=== PATIENT | female | born 1970 | race Caucasian/White ===

== ENCOUNTER → 2017-05-29 | Outpatient (CLI) | payer OTHER, BC ==
--- NOTE | 2017-05-29 10:51 | RAD ---
Indication: Right wrist pain. Time of exam 10:38 AM 4 views of the right wrist were obtained. The distal radius and ulna are intact. The carpus is intact. Metacarpals are unremarkable. No fractures are seen. The navicular is unremarkable. Impression: No acute bony abnormality is detected.
== END | disposition home or self-care (01) ==
LOC: DXRADRC 10:25
PROVIDERS: ATTEND General Practice
DX: S66.911A Strain of unspecified muscle, fascia and tendon at wrist and hand level, right hand, initial encounter (principal); R20.2 Paresthesia of skin; X58.XXXA Exposure to other specified factors, initial encounter; Y93.89 Activity, other specified; Y92.89 Other specified places as the place of occurrence of the external cause; Y99.8 Other external cause status
CPT/HCPCS: 73110

== ENCOUNTER → 2017-10-29 | Outpatient (CLI) | payer BC, OTHER ==
--- NOTE | 2017-10-31 08:48 | RAD ---
EXAM: MAMMO MARITA SCREENING BILATERAL. HISTORY: Screening. COMPARISON: Previous study from 2016 and 2015. FINDINGS: 2-D and 3-D tomosynthesis mammograms were obtained of both breasts in the CC and MLO projections. Computer-aided detection (CAD) was utilized. Breast density category B: There are scattered areas of fibroglandular densities. The skin and nipples are within normal limits. No suspicious calcifications, spiculated masses or areas of architectural distortion. IMPRESSION: No mammographic evidence of malignancy. Stable mammogram. BI-RADS CATEGORY: 1 NEGATIVE RECOMMENDED FOLLOW-UP: 12M 12 MONTH FOLLOW-UP PQRS compliance statement: Patient information was entered into a reminder system with a target due date 10/31/2018 for the next mammogram. Mammography is a sensitive method for finding small breast cancers, but it does not detect them all and is not a substitute for careful clinical examination. A negative mammogram does not negate a clinically suspicious finding and should not result in delay in biopsying a clinically suspicious abnormality. "Our facility is accredited by the [employer] Mammography [employer]."
== END | disposition home or self-care (01) ==
LOC: MAMMO 14:35
PROVIDERS: ATTEND Nurse Practitioner Family
DX: Z12.31 Encounter for screening mammogram for malignant neoplasm of breast (principal)
CPT/HCPCS: G0202; 77067

== ENCOUNTER → 2017-11-05 | Outpatient (CLI) | payer BC ==
--- NOTE | 2017-11-05 13:55 | RAD ---
Right knee, lateral view, 11/05/2017: History: Knee pain A single lateral view of the knee was obtained as requested. There is evidence of a moderate-sized knee joint effusion. No significant arthritic change, fracture or dislocation is identified on this limited exam.
== END | disposition home or self-care (01) ==
LOC: RAD 12:21
PROVIDERS: ATTEND Nurse Practitioner Family
DX: M25.561 Pain in right knee (principal); M25.461 Effusion, right knee
CPT/HCPCS: 73562

== ENCOUNTER → 2017-11-07 | Outpatient (CLI) | payer BC ==
[2017-11-07 08:50] LABS: ALBUMIN 3.3 g/dL (3.4-5.0); ALK PHOS 40 U/L (46-116); ALT (SGPT) 12 U/L (14-59); ANION GAP 7 (6-14); AST (SGOT) 10 U/L (15-37); BLOOD UREA NITROGEN 11 mg/dL (7-20); CALCIUM 8.5 mg/dL (8.5-10.1); CARBON DIOXIDE 27 mmol/L (21-32); CHLORIDE 107 mmol/L (98-107); CREATININE 0.6 mg/dL (0.6-1.0); DIRECT BILIRUBIN 0.1 mg/dL (0.0-0.2); GFR 106.3; GLUCOSE 95 mg/dL (70-99); SODIUM 141 mmol/L (136-145); TOTAL BILIRUBIN 0.3 mg/dL (0.2-1.0); TOTAL PROTEIN 7.2 g/dL (6.4-8.2)
[2017-11-07 08:51] LABS: VAL ACID 47 mcg/mL (50-100)
[2017-11-07 08:58] LABS: BASO % 1 % (0-3); EOS # 0.1 x10^3/uL (0.0-0.7); EOS % 2 % (0-3); HEMATOCRIT 26.5 % (36.0-47.0); HEMOGLOBIN 8.2 g/dL (12.0-15.5); LYMPH # 2.1 x10^3/uL (1.0-4.8); LYMPH % 52 % (24-48); MEAN CORPUSCULAR HEMOGLOBIN 23 pg (25-35); MEAN CORPUSCULAR HGB CONC 31 g/dL (31-37); MEAN CORPUSCULAR VOLUME 74 fL (79-100); MONO # 0.3 x10^3/uL (0.0-1.1); MONO % 7 % (0-9); NEUT # 1.5 x10^3uL (1.8-7.7); NEUT % 39 % (31-73); PLATELET COUNT 356 x10^3/uL (140-400); RED CELL DISTRIBUTION WIDTH 17.4 % (11.5-14.5); WHITE BLOOD COUNT 3.9 x10^3/uL (4.0-11.0)
[2017-11-07 09:16] LABS: BACTERIA,URINE MOD /HPF (0-FEW); BILIRUBIN,URINE NEG (NEG); CLARITY,URINE HAZY; COLOR,URINE STRAW; GLUCOSE,URINE NEG (NEG); NITRITE,URINE NEG (NEG); RBC,URINE OCC /HPF (0-2); UROBILINOGEN,URINE 1 mg/dL (0.2 mg/dL); WBC,URINE 0 /HPF (0-4)
[2017-11-07 09:17] LABS: SQUAMOUS EPITHELIAL CELL,UR MOD /LPF
[2017-11-07 10:08] LABS: OVALOCYTES FEW; PLT ESTIMATE ADEQUATE (ADEQUATE)
[2017-11-07 10:09] LABS: ANISOCYTOSIS MOD; HYPOCHROMIA MOD; MICROCYTOSIS SLIGHT; POIKILOCYTOSIS SLIGHT
[2017-11-07 10:10] LABS: POLYCHROMASIA MOD
[2017-11-07 10:11] LABS: TEAR DROP CELLS OCC
[2017-11-07 14:03] LABS: FREE T4 1.09 ng/dL (0.76-1.46); THYROID STIM HORMONE (TSH) 2.134 uIU/mL (0.358-3.740)
== END | disposition home or self-care (01) ==
LOC: LAB 08:05
PROVIDERS: ATTEND Nurse Practitioner Family
DX: Z01.419 Encounter for gynecological examination (general) (routine) without abnormal findings (principal); R79.89 Other specified abnormal findings of blood chemistry
CPT/HCPCS: 36415; 80048; 80061; 80076; 80164; 81001; 84439; 84443; 84481; 85025

== ENCOUNTER → 2018-02-13 | Outpatient (CLI) | payer BC ==
[2018-02-13] MEDS: IOHEXOL 300 MG/ML 75 ML VIAL. IV ONE (11:02)
--- NOTE | 2018-02-13 16:45 | RAD ---
CT of the abdomen and pelvis with IV and oral contrast 02/13/2018 Indication: Anemia. Comparison study: None Technique: Multidetector CT imaging of the abdomen and pelvis is obtained following the administration of IV and enteric contrast. Findings: Visualized lung bases are grossly unremarkable. Small hiatal hernia is noted. Prior cholecystectomy noted. Liver is otherwise unremarkable. Spleen is grossly unremarkable. Adrenal glands are within normal limits. The kidneys are within normal limits. The pancreas is unremarkable. Postoperative changes following sleeve gastrectomy noted. There is no evidence of bowel obstruction. No acute inflammatory changes involving the visualized bowel are identified. No free fluid or free air is seen in the abdomen or pelvis. Fluid is noted in the endometrial canal. Small aspect of fluid is seen posteriorly adjacent to the endometrium. Fluid also appears to be present surrounding the cervix. Correlate with phase of menstrual cycle. Consider pelvic ultrasound for further characterization as clinically indicated. There is a probable 2 cm cyst involving the right ovary. Note that CT is limited for characterization. No evidence of acute osseous abnormality is identified. Impression: 1. Fluid in the endometrial canal and possibly surrounding cervix. Correlate with phase of menstrual cycle. 2 cm cyst or dominant follicle noted in the right ovary. CT is limited for evaluation. Correlate with clinical history consider follow-up pelvic ultrasound as clinically indicated. 2. No other evidence of acute abdominal abnormality is seen 3. Prior cholecystectomy and sleeve gastrectomy PQRS Compliance Statement: One or more of the following individualized dose reduction techniques were utilized for this examination: 1. Automated exposure control 2. Adjustment of the mA and/or kV according to patient size 3. Use of iterative reconstruction technique
== END | disposition home or self-care (01) ==
LOC: CT 09:51
PROVIDERS: ATTEND Internal Medicine Gastroenterology
DX: D64.9 Anemia, unspecified (principal); K44.9 Diaphragmatic hernia without obstruction or gangrene; Z90.49 Acquired absence of other specified parts of digestive tract
CPT/HCPCS: 74177

== ENCOUNTER → 2018-06-18 | Outpatient (CLI) | payer BC ==
--- NOTE | 2018-06-18 18:26 | RAD ---
Three-view right shoulder radiographs 06/18/2018 CLINICAL HISTORY: Right shoulder pain intermittently for 9 months. AP internal and external rotation and transscapular radiographs of the right shoulder were obtained. No fracture or dislocation of the right shoulder is seen. Calcific densities are seen near the lateral aspect of the right humeral which could reflect calcific bursitis or tendinitis. Mild degenerative changes are seen involving the right AC joint and right glenohumeral joint. IMPRESSION: Degenerative changes are seen involving the right shoulder as outlined above. No acute osseous abnormality is seen. Electronically signed by: Victor M Templeton MD (06/18/2018 6:23 PM) [email or web address]
== END | disposition home or self-care (01) ==
LOC: RAD 16:58
PROVIDERS: ATTEND Physician Assistant
DX: M19.011 Primary osteoarthritis, right shoulder (principal)
CPT/HCPCS: 73030

== ENCOUNTER → 2018-10-31 | Outpatient (CLI) | payer BC ==
--- NOTE | 2018-10-31 11:15 | RAD ---
Right knee, 3 views, 10/31/2018: HISTORY: Recurring knee pain No fracture or dislocation is identified. No significant arthritic change is seen. IMPRESSION: No significant bony abnormality is detected. Electronically signed by: Bogdan Arce MD (10/31/2018 11:11 AM) [facility]
== END | disposition home or self-care (01) ==
LOC: PMG 09:07
PROVIDERS: ATTEND Physician Assistant
DX: M25.561 Pain in right knee (principal)
CPT/HCPCS: 73562

== ENCOUNTER → 2019-04-03 | Outpatient (CLI) | payer BC ==
--- NOTE | 2019-04-03 10:02 | RAD ---
DATE: 04/03/2019 EXAM: MAMMO MARITA SCREENING BILATERAL HISTORY: Routine screening, family history of breast cancer COMPARISON: 10/29/2017 This study was interpreted with the benefit of Computerized Aided Detection (CAD). Breast Density: SCATTERED The breast parenchyma shows scattered fibroglandular densities. Breast parenchyma level B. FINDINGS: 2-D and 3-D tomosynthesis imaging was performed in CC and MLO projections. There is a 3-4 mm nodule in the posterior aspect of the upper outer quadrant of the right breast as best seen on CC marita image #40. This nodule was not clearly seen on the previous study. No spiculated mass or architectural distortion is evident. No suspicious microcalcifications are seen. IMPRESSION: Small right breast nodule. Sonographic evaluation is suggested. BI-RADS CATEGORY: 0 INCOMPLETE: NEEDS ADDITIONAL IMAGING EVALUATION AND/OR PRIOR MAMMOGRAMS FOR COMPARISON. RECOMMENDED FOLLOW-UP: ADD ADDITIONAL IMAGING PQRS compliance statement: Patient information was entered into a reminder system with a target due date for the next mammogram. Mammography is a sensitive method for finding small breast cancers, but it does not detect them all and is not a substitute for careful clinical examination. A negative mammogram does not negate a clinically suspicious finding and should not result in delay in biopsying a clinically suspicious abnormality. "Our facility is accredited by the [employer] Mammography [employer]."
== END | disposition home or self-care (01) ==
LOC: MAMMO 09:06
PROVIDERS: ATTEND Physician Assistant Medical
DX: Z12.31 Encounter for screening mammogram for malignant neoplasm of breast (principal); N63.11 Unspecified lump in the right breast, upper outer quadrant; Z80.3 Family history of malignant neoplasm of breast
CPT/HCPCS: 77063; 77067

== ENCOUNTER → 2019-04-06 | Outpatient (CLI) | payer BC ==
--- NOTE | 2019-04-06 13:46 | RAD ---
Right breast ultrasound, 04/06/2019: History: Abnormal mammogram Recent mammograms demonstrated a small smooth nodule in the upper outer quadrant. A targeted ultrasound exam of that region was performed. At the 10:30 location approximately 9 cm in the nipple there is a study 3 mm hypoechoic nodule. Its margins are smooth. There are low level internal echoes. There is no definite posterior acoustic enhancement or shadowing. No internal vascularity is seen. This is likely a complicated cyst or tiny fibroadenoma. A circumscribed malignancy cannot be entirely excluded. No other abnormality is seen. IMPRESSION: Small right breast nodule as described above. Considering the patient's family history of breast cancer, ultrasound-guided biopsy is suggested for further evaluation. Mammographic/sonographic surveillance beginning in 4-6 months would be a reasonable alternative. BI-RADS 4-suspicious abnormality
== END | disposition home or self-care (01) ==
LOC: US 12:58
PROVIDERS: ATTEND Physician Assistant Medical
DX: N63.11 Unspecified lump in the right breast, upper outer quadrant (principal); Z80.3 Family history of malignant neoplasm of breast
CPT/HCPCS: 76641

== ENCOUNTER → 2020-06-14 | Outpatient (CLI) | payer BC ==
--- NOTE | 2020-06-15 12:18 | RAD ---
BILATERAL SCREENING MAMMOGRAM, 3-D History: Routine screening. Comparison: 10/04/2019, 10/29/2017. 11/13/2016, 11/08/2015 Technique: MLO and CC digital tomosynthesis (3D) images obtained. Radiologist reviewed these images on dedicated workstation. Findings: Breast Tissue Density B : There are scattered areas of fibroglandular density. There are no dominant masses, suspicious microcalcifications, or architectural distortion. IMPRESSION: No mammographic evidence of malignancy. Recommend routine screening. BI-RADS category 1: Negative. The images were reviewed with computer-aided detection. Patient information is entered into reminder system with a target due date for the next screening mammogram. Mammography is the most sensitive method for finding small breast cancers, but it does not detect them all and is not a substitute for careful clinical examination. A negative mammogram does not negate a clinically suspicious finding and should not result in delay in biopsying a clinically suspicious abnormality. "Our facility is accredited by the [employer] Mammography [employer]." Electronically signed by: Basil Delgadillo MD (06/15/2020 12:15 PM) [email or web address]
== END ==
LOC: MAMMO 14:51
PROVIDERS: ATTEND Family Medicine
DX: Z12.31 Encounter for screening mammogram for malignant neoplasm of breast (principal)
CPT/HCPCS: 77063; 77067

== ENCOUNTER → 2021-09-01 | Outpatient (CLI) | payer BC ==
--- NOTE | 2021-09-01 13:28 | RAD ---
INDICATION: Screening for osteopenia/osteoporosis. Reason: POST MENOPAUSAL / Spl. Instructions: / H istory: COMPARISON: None. TECHNIQUE: Bone densitometry was performed through the lumbar spine and proximal femur. IMPRESSION: Lumbar Spine: BMD: 1.3 T-Score: 1.3 Range: Normal Proximal Femur: BMD: 1.0 T-Score: 0.5 Range: Normal World Health Organization Criteria for Bone Density: T-Score: > -1.0: Normal Range < -1.0 to -2.5: Osteopenic Range < -2.5: Osteoporotic Range Electronically signed by: Gonzales Crawford MD (09/01/2021 1:26 PM) [id number]
--- NOTE | 2021-09-01 19:23 | RAD ---
DATE: 09/01/2021 EXAM: MAMMO MARITA SCREENING BILATERAL HISTORY: Screening COMPARISON: Prior exams dating back to 2013 This study was interpreted with the benefit of Computerized Aided Detection (CAD). Breast Density: SCATTERED The breast parenchyma shows scattered fibroglandular densities. Breast parenchyma level B. FINDINGS: No suspicious mass, calcifications, or architectural distortion. IMPRESSION: No evidence of malignancy. BI-RADS CATEGORY: 1 NEGATIVE RECOMMENDED FOLLOW-UP: 12M 12 MONTH FOLLOW-UP PQRS compliance statement: Patient information was entered into a reminder system with a target due date for the next mammogram. Mammography is a sensitive method for finding small breast cancers, but it does not detect them all and is not a substitute for careful clinical examination. A negative mammogram does not negate a clinically suspicious finding and should not result in delay in biopsying a clinically suspicious abnormality. "Our facility is accredited by the [employer] Mammography [employer]."
== END ==
LOC: MAMMO 10:54
PROVIDERS: ATTEND Family Medicine
DX: Z12.31 Encounter for screening mammogram for malignant neoplasm of breast (principal); E03.9 Hypothyroidism, unspecified; Z78.0 Asymptomatic menopausal state
CPT/HCPCS: 77063; 77067; 77081